=== PATIENT | male | born 1950 | race Caucasian/White ===

== ENCOUNTER 2024-09-24 12:46 | Emergency (ER) | payer BC ==
--- OUTSIDE RECORDS SUMMARY | 2024-09-24 12:51 | XMS REPORT | Clinical Summary ---
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 Family History Medical History Relation Name Comments Heart disease Father Relation Name Status Comments Father Social History Tobacco Use Types Packs/Day Years Used Date Smoking Tobacco: Former Cigarettes 1.5 10.1 1 09/01/1969 - 07/31/1980 Smokeless Tobacco: Never Alcohol Use Standard Drinks/Week Comments No 0 (1 standard drink = 0.6 oz pur e alcohol) Sex and Gender Information Value Date Recorded Sex Assigned at Male 08/04/2020 3:37 PM ROLLER HELPER Legal Sex Male 4:02 PM CDT Gender Identity Male 08/04/2020 3:37 PM ROLLER HELPER Sexual Orientation Straight 08/04/2020 3: 37 PM ROLLER HELPER 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 Not on file Not on file Not on file Obstetrics History Plan of Treatment Health Maintenance Due Date Last Done Comments Pneumococcal Vaccine: 50+ Ye ars (1 of - PCV) 2000 COVID-19 Vaccine ( season) 2024 06/23/2021, 10/13/2020, 09/22/2020 Influenza Vaccine (#1) 2024 Medical Devices Implanted Type Area Bobbin Trucker Device Identifier Shelf Expiration Date Model / Serial / Lot Elbow-08/16/1992 Implanted:1992 (Quantity not on file) Screw Description:titanium screw i n right elbow Insurance BS PPO POS OUT OF STATE GENERIC MEDICARE PART A MEDICARE PART A BCBS PPO POS OUT OF STATE GENERIC MEDICARE PART A Advance Directives * Full Code (Latest Code Status on File) Date Activated Date Inactivated Comments 08/05/2016 8:19 PM 08/11/2016 11:34 AM * Full Code Date Activated Date Inactivated Comments 2016 7:50 PM 07/14/2016 4:00 PM * Full Code Date Activated Date Inactivated Comments 06/18/2016 3:25 PM 06/23/2016 6:01 PM * Full Code Date Activated Date Inactivated Comments 05/27/2016 7:24 PM 06/01/2016 5:56 PM * Full Code Date Activated Date Inactivated Comments 05/07/2016 3:41 PM 05/12/2016 2:13 PM Care Teams After School Tutor Relationship Specialty Start Date End Date Harriet Lynch MD [address] [place] [id number] [email or web address] PCP - External Follow Up A Medical Oncology 03/17/16 Edwin Fabian MD [address] [place] [phone] [email or web address] PCP - General Lymphoma and Myeloma 03/17/16 Martin Handy MD [address] [place] [phone] [email or web address] Consulting Physician Infectious Diseases 04/16/16
[2024-09-24 14:33] LABS: Absolute Lymphocytes (CBC) 0.4 K/uL (0.7-4.9); Absolute Monocytes 0.5 K/uL (0.1-1.3); Absolute Neutrophil 2.5 K/uL (1.8-8.0); Basophils % 0.3 % (0-1.3); Hematocrit 42.8 % (39.6-49.0); Hemoglobin 14.7 g/dL (13.6-17.9); Lymphocytes % 13.1 % (15.3-44.8); MCH 32.9 pg (27.0-35.0); MCHC 34.4 g/dL (32.0-36.0); MCV 95.5 fL (80-100); MPV 8.9 fL (7.6-11.3); Monocytes % 13.5 % (3.3-12.3); Neutrophils % 73.1 % (41.7-73.7); Nucleated Red Blood Cells % 0.2 % (0-0); Platelets 93 thou/uL (152-406); RBC Red Blood Cell Count 4.49 M/uL (4.33-5.43); Red Cell Distribution Width 13.2 % (12.1-15.2)
[2024-09-24 14:40] LABS: Specific Gravity 1.019 (1.005-1.030); Sqamous Epithelial <5 /HPF (None Seen); Urine Bacteria <20 /HPF (<20); Urine Bilirubin NEGATIVE (Negative); Urine Blood 1+ (Negative); Urine Clarity Extremely Turbid (Clear); Urine Color Yellow (Yellow); Urine Crystals Unidentified Few /HPF (None Seen); Urine Culture Reflex Order REFLEXED; Urine Glucose NEGATIVE (Negative); Urine Ketones TRACE (Negative); Urine Micro Reflex YN NO BILL MICROSCOPIC; Urine Mucus Slight /HPF (None Seen); Urine Nitrite NEGATIVE (Negative); Urine Protein 1+ (Negative); Urine RBC 21-50 /HPF (None Seen); Urine Urobilinogen Normal (Normal); Urine WBC >50 /HPF (<5); Urine WBC Clump Rare /HPF (None Seen); Urine Yeast (Budding) Occasional /HPF (None Seen); Urine pH 5.5 (5.0-7.0)
[2024-09-24 14:48] LABS: Albumin 3.5 g/dL (3.4-5.0); Albumin/Globulin Ratio 0.8 (1.1-1.8); Anion Gap 6.9 mEq/L (5.0-15.0); Bilirubin Total 0.9 mg/dL (0.2-1.0); Globulin 4.6 g/dL (2.3-3.5); Potassium 3.9 mEq/L (3.5-5.1); Protein, Total 8.1 g/dL (6.4-8.2)
[2024-09-24 15:04] LABS: Influenza A Ag Negative; Influenza B Ag Negative; SARS-CoV-2 Antigen Rapid Res Negative (Negative)
--- NOTE | 2024-09-24 15:43 | RAD REPORT ---
EXAM: Chest Pa And Lat (2 Views) HISTORY: 74 years Male COUGH COMPARISON: 02/18/2018 FINDINGS: LUNGS/PLEURA: The lungs are clear. No pleural effusions or pneumothorax. No pulmonary edema. MEDIASTINUM: The mediastinal silhouette is within normal limits CARDIAC: The cardiac silhouette is within normal limits. UPPER ABDOMEN: No significant abnormality. BONES: No acute abnormality. LINES/TUBES/OTHER: N/A IMPRESSION: No evidence of acute cardiopulmonary disease.
--- NOTE | 2024-09-24 16:04 | ER ---
Nurse's Notes [facility] Nicole Name: Deep Kang Age: 74 yrs Sex: Male : 1950 Arrival Date: 09/24/2024 Time: 12:46 Bed 23 Private MD: Diagnosis: UTI/ Urinary tract infection, site not specified;Cough;Dorsalgia, unspecified Presentation: 09/24 13:25 Chief complaint: Patient states: he has been having fevers, cough, back pain, facial ap3 pain, and feeling like he is having shortness of breath since Tuesday09/22/24. patient currently rates his pain as a 5/10 on the pain scale. Coronavirus screen: Client presents with at least one sign or symptom that may indicate coronavirus-19. Ebola Screen: No symptoms or risks identified at this time. Initial Sepsis Screen: Does the patient meet any 2 criteria? HR > 90 bpm. Does the patient have a suspected source of infection? No. Patient's initial sepsis screen is negative. Risk Assessment: Do you want to hurt yourself or someone else? Patient reports no desire to harm self or others. Onset of symptoms was September 22, 2024. 13:25 Method Of Arrival: Ambulatory ap3 13:25 Acuity: LOCO 3 ap3 Triage Assessment: 13:28 General: Appears ill, Behavior is calm, cooperative, appropriate for age. Pain: ap3 Complains of pain in back Pain currently is 5 out of 10 on a pain scale. Neuro: Level of Consciousness is awake, alert, obeys commands, Oriented to person, place, time, situation, Appropriate for age. Cardiovascular: Patient's skin is warm and dry. Respiratory: Reports shortness of breath cough that is Airway is patent Respiratory effort is even, unlabored, Onset: The symptoms/episode began/occurred gradually, the patient has mild shortness of breath. Historical: - Allergies: 13:27 No Known Allergies; ap3 - PMHx: 13:27 Kidney stones; LYMPHOMA; picc line R arm; ap3 - Immunization history:: Client reports receiving the 2nd dose of the Covid vaccine, Flu vaccine is not up to date. - Infectious Disease History:: Denies. - Social history:: Smoking status: Patient denies any tobacco usage or history of. Screenin:28 [facility] ED Fall Risk Assessment (Adult) History of falling in the last 3 months, ap3 including since admission No falls in past 3 months (0 pts) Confusion or Disorientation No (0 pts) Intoxicated or Sedated No (0 pts) Impaired Gait No (0 pts) Mobility Assist Device Used No (0 pt) Altered Elimination No (0 pt) Score/Fall Risk Level 0 - 2 = Low Risk Oriented to surroundings, Maintained a safe environment, Educated pt \T\ family on fall prevention, incl call for assistance when getting out of bed, Assessed \T\ reinforced patient's understanding of fall precautions, Hourly rounding (assess needs \T\ fall precautionary measures) done, Used ambulatory aids as needed (educated on \T\ assisted with). Abuse screen: Denies threats or abuse. Nutritional screening: No deficits noted. Tuberculosis screening: No symptoms or risk factors identified. Assessment: 16:29 Reassessment: Patient appears in no apparent distress at this time. Patient and/or jb4 family updated on plan of care and expected duration. Pain level reassessed. Patient is alert, oriented x 3, equal unlabored respirations, skin warm/dry/pink. Vital Signs: 13:25 BP 131 / 84; Pulse 97; Resp 18; Temp 98.7(O); Pulse Ox 98% on R/A; Weight 92.99 kg; ap3 Height 5 ft. 10 in. ; Pain 5/10; 13:25 Body Mass Index 29.41 (92.99 kg, 177.8 cm) ap3 13:25 Pain Scale: Adult ap3 ED Course: 12:52 Patient arrived in ED. al6 12:54 Rosalino Acosta PA is [facility]. cp 12:54 Jordan Diaz MD is Attending Physician. cp 13:27 Triage completed. ap3 13:29 Arm band placed on right wrist. ap3 14:16 CMP Sent. bc6 14:16 CBC with Diff Sent. bc6 14:16 Group A Streptococcus Rapid Sent. bc6 14:16 COVID-19 Ag + Flu A+B Ag Sent. bc6 14:16 Initial lab(s) drawn, by ut, sent to lab. COVID swab sent to lab. Strep swab sent to 6 lab. Inserted saline lock: 20 gauge in right antecubital area, using aseptic technique. Blood collected. Flushed with 10 mL NS. 15:02 XRAY Chest Pa And Lat (2 Views) In Process Unspecified. EDMS 15:49 Nain Valencia, RN is Primary Nurse. jb4 16:29 Patient has correct armband on for positive identification. Bed in low position. Call jb4 light in reach. Side rails up X 1. Provided Education on: discharge instructions.. 16:29 No provider procedures requiring assistance completed. IV discontinued, intact, jb4 bleeding controlled, No redness/swelling at site. Pressure dressing applied. Administered Medications: 16:24 Not Given (Other Intervention Used): [id number] mg IM once jb4 16:24 Drug: Tussionex Pennkinetic ER PO Suspension 5 ml PO once Route: PO; jb4 16:31 Follow up: Response: Medication administered at discharge. jb4 16:24 Not Given (Other Intervention Used): rocephin (ceftriaxone)1 grams IM once jb4 16:24 Drug: Rocephin IV 1 grams IV at calculated rate once; Given slow IV push per pharmacy jb4 instructions Route: IV; Rate: calculated rate; Site: right antecubital; 16:27 Follow up: Response: No adverse reaction; IV Status: Completed infusion; IV Intake: [id number] 16:24 Drug: Ketorolac IVP 30 mg IVP once Route: IVP; Site: right antecubital; jb4 16:31 Follow up: Response: Medication administered at discharge. jb4 Medication: 16:29 VIS not applicable for this client. jb4 Intake: 16:27 IV: 10ml; Total: 10ml. jb4 Outcome: 16:04 Discharge ordered by . siobhan 16:29 Discharged to home ambulatory, with family, jb4 16:29 Condition: stable 16:29 Discharge instructions given to patient, Instructed on discharge instructions, follow up and referral plans. medication usage, Demonstrated understanding of instructions, follow-up care, medications, Prescriptions given X 3, 16:31 Patient left the ED. jb4 Signatures: Dispatcher [employer] EDAZ Rosalino Acosta PA PA cp Bryson, James, RN RN jb4 Shahnaz Blank RN RN ap3 Cassia Holcomb6 Tamia Higgins6
--- NOTE | 2024-09-24 16:05 | EDPHYS ---
Physician Documentation [facility] Name: Deep Kang Age: 74 yrs Sex: Male : 1950 Arrival Date: 09/24/2024 Time: 12:46 Bed 23 Private MD: ED Physician Jordan Diaz HPI: 09/24 14:10 This 74 yrs old Male presents to ER via Ambulatory with complaints of Cough, Low Back cp Pain, Fever, Breathing Difficulty. 14:10 The patient or guardian reports cough, described as moderate. Onset: The cp symptoms/episode began/occurred 2 day(s) ago. Severity of symptoms: in the emergency department the symptoms are unchanged, despite home interventions. Associated signs and symptoms: Pertinent positives: fever, back pain in kidney area, Pertinent negatives: chest pain, diarrhea, vomiting. Historical: - Allergies: 13:27 No Known Allergies; ap3 - PMHx: 13:27 Kidney stones; LYMPHOMA; picc line R arm; ap3 - Immunization history:: Client reports receiving the 2nd dose of the Covid vaccine, Flu vaccine is not up to date. - Infectious Disease History:: Denies. - Social history:: Smoking status: Patient denies any tobacco usage or history of. ROS: 14:15 Constitutional: Positive for body aches, chills, fever, Negative for poor PO intake, cp 14:15 Eyes: Negative for injury, pain, redness, and discharge, cp 14:15 ENT: Negative for ear pain, difficulty swallowing, difficulty handling secretions, 14:15 Cardiovascular: Negative for chest pain, edema, palpitations, 14:15 Respiratory: Positive for cough, "sounds productive", Negative for shortness of breath, wheezing, 14:15 Abdomen/GI: Negative for abdominal pain, vomiting, diarrhea, constipation, 14:15 Back: Positive for pain at rest, pain with movement, of the low back area and mid back area, 14:15 Neuro: Negative for altered mental status, dizziness, headache, numbness, weakness, 14:15 All other systems are negative, Exam: 14:20 Constitutional: The patient appears in no acute distress, alert, awake, cp non-diaphoretic, non-toxic, well developed, well nourished, 14:20 Head/Face: Normocephalic, atraumatic. cp 14:20 Eyes: Periorbital structures: appear normal, Conjunctiva: normal, no exudate, no injection, Sclera: no appreciated abnormality, Lids and lashes: appear normal, bilaterally, 14:20 ENT: External ear(s): are unremarkable, Nose: is normal, Mouth: Lips: moist, Oral mucosa: moist, Posterior pharynx: Airway: no evidence of obstruction, patent, 14:20 Chest/axilla: Inspection: normal, 14:20 Cardiovascular: Rate: normal, 14:20 Respiratory: the patient does not display signs of respiratory distress, Respirations: normal, no use of accessory muscles, no retractions, labored breathing, is not present, Breath sounds: stridor, is not appreciated, wheezing: is not appreciated, 14:20 Abdomen/GI: Inspection: abdomen appears normal, Palpation: abdomen is soft and non-tender, in all quadrants, 14:20 Back: pain, that is moderate, of the low back area, ROM is normal, 14:20 Skin: no rash present. 14:20 Neuro: Orientation: to person, place \\T\\ time. Mentation: is normal, Motor: moves all fours, strength is normal, Sensation: is normal, Vital Signs: 13:25 BP 131 / 84; Pulse 97; Resp 18; Temp 98.7(O); Pulse Ox 98% on R/A; Weight 92.99 kg; ap3 Height 5 ft. 10 in. ; Pain 5/10; 13:25 Body Mass Index 29.41 (92.99 kg, 177.8 cm) ap3 13:25 Pain Scale: Adult ap3 MDM: 13:29 Medical Screening Exam initiated cp 15:00 Differential Diagnosis: Bronchitis Influenza Upper Respiratory Infection Pneumonia. 16:04 Data reviewed: vital signs, nurses notes, lab test result(s), radiologic studies, plain cp films, and as a result, I will discharge patient. 16:04 I considered the following discharge prescriptions or medication management in the emergency department Medications were administered in the Emergency Department. See MAR. Care significantly affected by the following chronic conditions: Cancer. Counseling: I had a detailed discussion with the patient and/or guardian regarding the historical points, exam findings, and any diagnostic results supporting the discharge/admit diagnosis, lab results, radiology results, the need for outpatient follow up, a family practitioner, to return to the emergency department if symptoms worsen or persist or if there are any questions or concerns that arise at home. 09/24 14:02 Order name: COVID-19 Ag + Flu A+B Ag; Complete Time: 15:29 cp 09/24 14:02 Order name: Group A Streptococcus Rapid; Complete Time: 15:03 cp 09/24 14:02 Order name: Urinalysis W/Microscopic; Complete Time: 15:03 cp 09/24 15:04 Interpretation: Normal except: [facility] Extremely Turbid; UKET TRACE; UBLD 1+; UPROT 1+; cp UESTR 500; UWBC >50; URBC 21-50; BYST Occasional. 09/24 14:02 Order name: CBC with Diff 09/24 15:04 Interpretation: Normal except: WBC 3.40; PLT 93; LYM% 13.1; MN% 13.5; LYMA 0.4. 09/24 14:02 Order name: CMP; Complete Time: 15:03 cp 09/24 15:04 Interpretation: Normal except: NA 134; GLUC 111; GFR 83; AST 38; ALT 77. 09/24 14:48 Order name: Urine Culture EDIA 09/24 14:59 Order name: Throat Culture EDIA 09/24 16:10 Order name: CBC Smear Scan EDIA 09/24 14:02 Order name: XRAY Chest Pa And Lat (2 Views); Complete Time: 15:59 cp 09/24 14:02 Order name: IV; Complete Time: 14:16 cp Administered Medications: 16:24 Not Given (Other Intervention Used): [id number] mg IM once jb4 16:24 Drug: Tussionex Pennkinetic ER PO Suspension 5 ml PO once Route: PO; jb4 16:31 Follow up: Response: Medication administered at discharge. jb4 16:24 Not Given (Other Intervention Used): rocephin (ceftriaxone)1 grams IM once jb4 16:24 Drug: Rocephin IV 1 grams IV at calculated rate once; Given slow IV push per pharmacy jb4 instructions Route: IV; Rate: calculated rate; Site: right antecubital; 16:27 Follow up: Response: No adverse reaction; IV Status: Completed infusion; IV Intake: [id number] 16:24 Drug: Ketorolac IVP 30 mg IVP once Route: IVP; Site: right antecubital; jb4 16:31 Follow up: Response: Medication administered at discharge. jb4 Disposition Summary: 09/24/24 16:04 Discharge Ordered Notes: Location: Home cp Problem: new cp Symptoms: have improved cp Condition: Stable cp Diagnosis - UTI/ Urinary tract infection, site not specified cp - Cough cp - Dorsalgia, unspecified cp Followup: cp - With: Private Physician - When: 2 - 3 days - Reason: Recheck today's complaints Discharge Instructions: - Discharge Summary Sheet cp - Acute Back Pain, Adult cp - Urinary Tract Infection, Adult cp - Cough, Adult cp Forms: - Medication Reconciliation Form cp - Antibiotic Education cp - Prescription Opioid Use cp - Patient Portal Instructions cp - Leadership Thank You Letter cp Prescriptions: - Bromfed DM 2-30-10 mg/5 mL Oral syrup - administer 10 milliliter ORAL route every 6-8 hours as needed for cold cp symptoms; 240 milliliter; Refills: 0, Product Selection Permitted - Celebrex 200 mg Oral Capsule - take 1 capsule ORAL route once daily As needed take with food; 20 capsule; cp Refills: 0, Product Selection Permitted - Cipro 500 mg Oral Tablet - take 1 tablet ORAL route every 12 hours for 10 days; 20 tablet; Refills: 0, cp Product Selection Permitted Addendum: 09/25/2024 20:23 I was immediately available for consultation during this patient's visit. I did not e c2 personally see the patient or discuss the patient with the [facility]. . Signatures: Dispatcher [employer] EDMS Rosalino Acosta PA PA cp Bryson, James, RN RN jb4 Shahnaz Blank RN RN ap3 Jordan Diaz MD MD ec2 Corrections: (The following items were deleted from the chart) 09/24 14:02 14:02 Chest Pa And Lat (2 Views)+RAD.RAD.BRZ ordered. EDMS EDMS 14:02 14:02 COVID-19 Ag + Flu A+B Ag+I.LAB.BRZ ordered. EDMS EDMS 14:02 14:02 Group A Streptococcus Rapid Sc+I.LAB.BRZ ordered. EDMS EDMS 14:02 14:02 Urinalysis W/Microscopic+U.LAB.BRZ ordered. EDMS EDMS 14:02 14:02 CBC+H.LAB.BRZ ordered. EDMS EDMS 14:02 14:02 COMPREHENSIVE METABOLIC PANEL+C.LAB.BRZ ordered. EDMS EDMS 09/25 10:49 09/24 15:15 Differential Diagnosis: Bronchitis Influenza Upper Respiratory Infection cp Pneumonia cp
[2024-09-24 16:09] LABS: Blood Morphology Comment NOT SEEN (NOT SEEN); Platelet Estimate DECR; White Blood Cell Scan OK (OK)
[2024-09-24] MEDS ORDERED: CEFTRIAXONE 1000 MG/VIAL ONE (16:16)
[2024-09-24] MEDS ORDERED: HYDROCODONE/CHLORPHEN 5 ML/OSYR ONE (16:16)
[2024-09-24] MEDS ORDERED: KETOROLAC 30 MG/ML INJ ONE (16:16)
[2024-09-24 16:35] VITALS: BP 131/84; TEMP 98.7; O2SAT 98
== END 2024-09-24 16:31 | disposition home or self-care (01) ==
LOC: ER 12:46
DX: N39.0 Urinary tract infection, site not specified (principal); R05.9 Cough, unspecified; M54.9 Dorsalgia, unspecified; Z11.52 Encounter for screening for COVID-19
CPT/HCPCS: 87070; 87088; 85025; 81001; 87086; 36415; 80053; 71046; 96375; 96374; 99284; 87428; J0696